=== PATIENT | male | born 1975 | race Caucasian/White ===

== ENCOUNTER 2025-02-20 22:38 | Emergency (ER) | payer OTHER ==
[~2025-02-20] VITALS: Ht 172.7 cm; Wt 126.0 kg
[2025-02-20 22:55] VITALS: O2SAT 97
[2025-02-20 23:37] LABS: BASOPHILS % 0.8 % (0.0-2.0); EOSINOPHILS % 2.6 % (0.0-5.0); HEMATOCRIT. 46.8 % (42.0-52.0); HEMOGLOBIN. 15.3 g/dL (14.0-18.0); LYMPHOCYTES % 24.0 % (20.0-50.0); MEAN PLATELET VOLUME 9.7 fl (7.4-10.4); MONOCYTES % 9.4 % (2.0-8.0); NEUTROPHILS % 63.2 % (40.0-76.0); PLATELET 260 x1000/uL (130-400); RED BLOOD CELL COUNT 5.30 mill/uL (4.7-6.1); RED CELL DISTRIBUTION WIDTH 14.1 % (11.6-14.6)
[2025-02-20 23:47] LABS: CREATININE 1.1 mg/dL (0.6-1.3)
[2025-02-20 23:48] LABS: UREA NITROGEN BLOOD 17 mg/dL (9-23)
[2025-02-20 23:50] LABS: TROPONIN I HIGH SENSITIVITY 4 ng/L (3.0-53)
[2025-02-21] MEDS: KETOROLAC 15MG/ML VIAL IM ONE (01:35)
[2025-02-21] MEDS ORDERED: NAPR-1176 MT (01:46)
[2025-02-21 01:56] VITALS: BP 127/83; PULSE 63; RESP 15; TEMP 36.4; O2SAT 100
== END 2025-02-21 01:56 | disposition home or self-care (01) ==
LOC: ER 22:38
DX: R07.89 Other chest pain (principal); Z79.1 Long term (current) use of non-steroidal anti-inflammatories (NSAID)
CPT/HCPCS: 36415; 71045; 80048; 84484; 85025; 93005; 99285